=== PATIENT | male | born 1940 | race African-American/Black ===

== ENCOUNTER → 2018-05-28 | Outpatient (CLI) | payer MEDICARE ==
--- NOTE | 2018-05-28 16:27 | US ---
EXAMINATION TYPE: US thyroid st tissue head/neck DATE OF EXAM: 05/28/2018 COMPARISON: NONE CLINICAL HISTORY: E04.9 ENLARGED THYROID. Enlarged thyroid GLAND SIZE: Right Lobe: 5.3 x 2.3 x 2.7 cm Overall Parenchyma: homogenous Left Lobe: 4.4 x 2.4 x 2.3 cm Overall Parenchyma: homogeneous Isthmus Thickness: 0.7 cm NODULES RIGHT: # of nodules measured on right: 1 1. 1.0 X 0.6 x 0.8 cm hypoechoic mixed nodule at the lower pole with well-defined margins. This nod ule is wider than tall and shows no intranodular vascularity. Prior size: no previous LEFT: # of nodules measured on left: 0 ISTHMUS: # of nodules measured in the isthmus: 0 Bilateral neck scanned, no evidence of lymphadenopathy. Enlarged right lobe with inferior pole nodule, limited visualization of left lobe due to it's low pos ition within the neck. IMPRESSION: 1. A 1.0 x 0.6 x 0.8 cm solid lesion within the right lobe thyroid.
== END ==
LOC: RADUSWWP 12:29
PROVIDERS: ATTEND Family Medicine
DX: E07.89 Other specified disorders of thyroid (principal)
CPT/HCPCS: 76536